=== PATIENT | female | born 1980 | race Caucasian/White ===

== ENCOUNTER 2019-08-13 07:05 | Emergency (ER) | payer BC ==
--- NOTE | 2019-08-13 07:52 | RAD ---
Radiograph right shoulder 3 views: HISTORY: 39-year-old female with decreased range of motion and pain after traumatic injury. FINDINGS: No fracture, subluxation, or dislocation. IMPRESSION: Negative
== END 2019-08-13 07:44 | disposition home or self-care (01) ==
LOC: SCSER 07:05
DX: S43.014A Anterior dislocation of right humerus, initial encounter (principal); Z79.899 Other long term (current) drug therapy; X50.9XXA Other and unspecified overexertion or strenuous movements or postures, initial encounter
CPT/HCPCS: 23650

== ENCOUNTER 2019-09-30 08:13 | Outpatient (CLI) | payer BC ==
[~2019-09-30 08:13] MED LIST: EPINEPHrine 1 MG/ML AMP ONE; Gadobenate Dimeglumine 529 MG/1 ML (20ML VIAL) ONE; Iopamidol 300 61% 50 ML VIAL FS ONE; Lidocaine 1% PF 10 ML AMP ONE
--- NOTE | 2019-09-30 10:43 | RAD ---
PROCEDURE: Fluoroscopic right shoulder arthrogram INDICATION: Right shoulder pain COMPARISON: None TECHNIQUE: Informed consent was obtained. Preprocedure manager internet images were obtained of the right should er. The patient was placed supine on the fluoroscopic table. A timeout was performed. Site overlying the right shoulder was prepped and draped in the usual sterile fashion. Buffered 1% lidocai ne was administered into the overlying subcutaneous tissues. Under fluoroscopic guidance, a 22-gauge spinal needle was guided down into the right glenohumeral joint. Confirmation of needle loca lization was confirmed by injecting 1 cc of the buffered 1% lidocaine. Following this 7 cc of the dilute Multihance solution MR Mix: 23.5 mL solution containing 10 mL of 0.008 dilution of Multihance, 8 mL Isovue 300, 5 mL 1% Lidocaine, 0.5 mL of 1mg/mL Epinephrine was injected. Contrast was visualized within the right glenohumeral joint with fluoroscopy. The needle was removed. The injectio n site was then cleansed and bandage. The patient tolerated the injection without difficulty. Fluoroscopic time: 0.3minutes Fluoroscopic dose: 6.7mcg/sq m FINDINGS: No acute osseous abnormality. IMPRESSION: Successful right shoulder arthrogram. The patient is to have a follow-up MRarthrogram of the shoulder. Please see this report for further details.
--- NOTE | 2019-09-30 12:06 | MRI ---
MR ARTHROGRAM OF THE RIGHT SHOULDER: INDICATION: History of shoulder dislocation and recurrent shoulder instability and pain. TECHNIQUE: Multiplanar multisequence MR images were obtained of the right shoulder following intra-articular adm inistration of a dilute gadolinium solution. Please see the separately dictated right shoulder arthrogram for details concerning the injection technique. Motion artifact limits image detail of exa mination. The patient refused the Aber view series. COMPARISON: Right shoulder radiograph dated August 13, 2019. FINDINGS: There is a Hill-Sachs deformity involving the posterior superior margin of the humeral head. There is a full-thickness tear involving the anterior inferior glenoid labrum consistent with a Bankart lesion. The tear extends from approximately the 5:00 position through the 3:00 position. There is a h igh-grade partial thickness articular surface tear involving the posterior supraspinatus approximately 8 mm from the footprint. The tear is near full-thickness and involves 90% of the tendon thickness. No additional focal tear is evident. No muscular atrophy is noted. The biceps tendon is located. No os acromiale is evident. AC joint is normal-appearing. IMPRESSION: 1. Hill-Sachs deformity and Bankart lesion. 2. High-grade partial thickness articular surface tear of the posterior supraspinatus involving appro ximately 90% of the tendon thickness. Transcribed Date/Time: 09/30/2019 12:19 PM
[2019-09-30] MEDS ORDERED: Magnevist 469MG/ML 20 ML VIAL ONE (15:22)
== END 2019-09-30 08:14 | disposition home or self-care (01) ==
LOC: RAD 08:13
PROVIDERS: ATTEND Orthopaedic Surgery
DX: S43.004A Unspecified dislocation of right shoulder joint, initial encounter (principal)
CPT/HCPCS: 23350; A9577; A9579; J0171; J2001; Q9967

== ENCOUNTER 2019-11-19 08:59 | Outpatient (CLI) | payer BC ==
[2019-11-19 09:12] LABS: #Basophils 0.1 thou/uL (0.0-0.2); #Eosinphils 0.1 thou/uL (0.0-0.7); #Lymphocytes 2.6 thou/uL (1.20-3.40); #Monocytes 0.5 thou/uL (0.11-0.59); %Basophils 0.8 % (0.0-1.0); %Eosinophils 0.8 % (0.0-10.0); %Neutrophils 68.3 % (42.0-75.0); Hemoglobin 14.4 g/dL (12.0-16.0); Mean Corpuscular HGB CONC 34.6 g/dL (32.0-36.0); Mean Corpuscular Hemoglobin 34.4 pg (27.0-31.0); Mean Corpuscular Volume 99.4 fL (78.0-98.0); Mean Platelet Volume 7.3 fL (7.4-10.4); Platelet Count 251 thou/uL (130-400); RBC Distribution Width 11.1 % (11.5-14.5); Red Blood Cell (RBC) Count 4.18 mill/uL (4.20-5.40); White Blood Cell (WBC) Count 10.2 thou/uL (4.8-10.8)
[2019-11-19 09:15] LABS: BHCG - Serum Negative (NEGATIVE); Pregs Control Background? CLEAR/WHITE (CLR/WHITE); Pregs Control Bar Appear? YES (CONTROL BAR)
[2019-11-19 09:22] LABS: Bacteria/HPF 1+ HPF (None Seen); Bilirubin Negative (Negative); Blood, Urine Negative (Negative); Clarity Clear (Clear); Glucose, Urine (Dipstick) Normal (Negative); Leukocyte Negative Leu/uL (Negative); Nitrite Negative (Negative); Protein, Urine (Dipstick) 30 mg/dL (Neg-Trace); RBC/HPF 0-3 HPF (0-3); Squamous Epithelial 0-3 HPF (0-3); Urobilinogen Normal mg/dL (Less than 2); WBC/HPF 0-3 HPF (0-3)
== END 2019-11-19 09:00 | disposition home or self-care (01) ==
LOC: LABBT 08:59
PROVIDERS: ATTEND Orthopaedic Surgery
DX: Z01.812 Encounter for preprocedural laboratory examination (principal); M75.101 Unspecified rotator cuff tear or rupture of right shoulder, not specified as traumatic
CPT/HCPCS: 81001; 84703; 85025

== ENCOUNTER 2019-11-21 09:36 | Day surgery (SDC) | payer BC ==
[2019-11-19 08:40] VITALS: BMI 25.1
[2019-11-21] MEDS ORDERED: PROPOFOL 200 MG/20 ML VIAL ONE (09:42)
[2019-11-21] MEDS ORDERED: Glycopyrrolate 0.2 MG/ML 5 ML SYRINGE ONE (09:42)
[2019-11-21] MEDS ORDERED: Ropivacaine 0.5% HCl/PF (150 MG/30 ML VIAL) ONE (09:42)
[2019-11-21] MEDS ORDERED: Rocuronium Bromide 10 MG/ML (10ML VIAL) ONE (09:42)
[2019-11-21] MEDS ORDERED: Ondansetron PF 4 MG/2 ML Vial ONE (09:42)
[2019-11-21] MEDS ORDERED: Ropivacaine 0.2% HCl/PF (40 MG/20 ML VIAL) ONE (09:42)
[2019-11-21] MEDS ORDERED: ePHEDrine/0.9% NaCl/PF SYRINGE 50 mg/10 ml ONE (09:42)
[2019-11-21] MEDS ORDERED: Lidocaine 1% PF 5 ML VIAL ONE (09:42)
[2019-11-21] MEDS ORDERED: Midazolam HCl 2 mg/2 ml Vial ONE ×2 (10:31→11:15)
[2019-11-21] MEDS ORDERED: Fentanyl 100 MCG/2 ML VIAL ONE (10:31)
[2019-11-21] MEDS ORDERED: Scopolamine 1.5 mg/72 hour Patch ONE (10:43)
[2019-11-21] MEDS ORDERED: traMADol HCl 50 MG TAB PO PRN ×2 (11:07)
[2019-11-21] MEDS ORDERED: Zolpidem Tartrate 5 MG TAB PO PRN (11:07)
[2019-11-21] MEDS ORDERED: Promethazine HCl 25 MG/ML VIAL IM PRN (11:07)
[2019-11-21] MEDS ORDERED: Ropivacaine 0.2% 550 ML 550 ML NERVE BLCK SCH (11:07)
[2019-11-21] MEDS ORDERED: Ondansetron PF 4 MG/2 ML Vial IVP PRN (11:07)
[2019-11-21] MEDS ORDERED: Acetaminophen 325 MG TAB PO PRN (11:07)
[2019-11-21] MEDS ORDERED: HYDROcodone/Acetaminophen 10/325 mg Tablet PO PRN ×2 (11:07)
[2019-11-21] MEDS ORDERED: Fentanyl 100 MCG/2 ML VIAL IV PRN (11:08)
[2019-11-21] MEDS ORDERED: Lidocaine 1% w/Epinephrine 1:100K 20 ML VIAL ONE (11:42)
[2019-11-21] MEDS ORDERED: Meperidine HCl/PF 25 MG/ML VIAL ONE (13:22)
[2019-11-21] MEDS ORDERED: HYDROcodone/Acetaminophen 5/325 mg Tablet ONE (14:14)
--- NOTE | 2019-11-21 15:40 | OP ---
DATE OF PROCEDURE: 11/21/2019 PREOPERATIVE DIAGNOSES: 1. Right shoulder dislocation. 2. Right Bankart. 3. Right high-grade partial-thickness rotator cuff tear. POSTOPERATIVE DIAGNOSES: 1. Right shoulder dislocation. 2. Right Bankart. 3. Right high-grade partial-thickness rotator cuff tear. 4. Synovitis PROCEDURES PERFORMED: 1. Right rotator cuff repair. 2. Debridement of Bankart. QUALITY ASSURANCE SUPERVISOR BODY: None. ANESTHESIOLOGIST: Kim Maynard MD ANESTHESIA: The patient received a general endotracheal intubation with interscalene block. ESTIMATED BLOOD LOSS: None. IMPLANTS: 4.75 SwiveLock. ANTIBIOTICS: Ancef 2 g. COMPLICATIONS: None. HISTORY OF PRESENT ILLNESS: Ms. Cisse is a 39-year-old female, history of being a gymnast. The patient had a dislocation, which she reduced. The patient had a 90% tear of the rotator cuff with an anterior labral and continued to complaint about pain. She failed conservative management with therapy. She would like to be evaluated arthroscopically for rotator cuff repair. I discussed that given the Bankart and rotator cuff repair, I was concerned combination of both might lead her to be extremely stiff and she may dislike her limited range of motion, but the patient understood this and elected for the rotator cuff repair. She understood the risks and benefits of the procedure to include, pain, scar, bleeding, infection, damage to vital structures, decreased range of motion and strength, need for further surgery, pain despite surgery intervention, and loss of life or limb. The patient understood the risks and benefits and elected to proceed. DESCRIPTION OF PROCEDURE: Time-out was performed designating the patient's right upper extremity as the operative site based on site, consents, and marking. After time-out, posterior working portal was placed and anterior portal was placed. She actually was tight on exam under anesthesia showing about 60 degrees external rotation on the right, which I was able to manipulate to 80. Some bleeding within the joint. I came down and found the patient's labrum, which was peeled off, it was not completely peeled off and had some scarring. I shaved just along the edge and made some small cautery edges to help with adherence of the labrum along the anterior aspect of the glenoid. I looked at the biceps, it looked good. There was synovitis in rotator interval. Subscapularis looked good. The intra-articular rotator cuff tear was difficult to appreciate because of space in the shoulder. There was some undersurface tearing, but could not find a 90% tear. I looked all the cartilage lesions, washed out the joint. I then moved subacromially. There was bursa of the shoulder, which I debrided off. I came down and found the patient's tear, which is a soft spot, which I fell into with a very small tear making very challenging actually to repair. We put a 4.75 SwiveLock into the footprint. We sewed sutures using both a SutureLasso for anterior stitch as well as a FastPass to get the sutures anterior and posterior and closed it up, tied the horizontal mattress sutures and cut the knots. Took pictures, I washed and cleaned. The patient will be in a sling with elbow, wrist, and hand motion. I will see her back in 2 weeks. [place] is guarded. She fails this and continues to have pain despite surgical intervention, we might proceed forward with actually a Bankart repair and possible biceps tenodesis She is able to regain her range of motion and still complains of instability. I do not think this will be the case. The patient will be followed in-house and is to be followed up upon discharge. Job ID: [id number] [facility]
== END 2019-11-21 16:05 | disposition home or self-care (01) ==
LOC: SDC 09:36
PROVIDERS: ATTEND Orthopaedic Surgery
PROC: 0LQ14ZZ Repair Right Shoulder Tendon, Percutaneous Endoscopic Approach (ICD-10-PCS; principal; 2019-11-21)
PROC: 3E0T3BZ Introduction of Anesthetic Agent into Peripheral Nerves and Plexi, Percutaneous Approach (ICD-10-PCS; principal; 2019-11-21)
DX: M75.111 Incomplete rotator cuff tear or rupture of right shoulder, not specified as traumatic (principal); S43.431A Superior glenoid labrum lesion of right shoulder, initial encounter; S43.004A Unspecified dislocation of right shoulder joint, initial encounter; M65.9 Synovitis and tenosynovitis, unspecified; G89.18 Other acute postprocedural pain; Z88.1 Allergy status to other antibiotic agents
CPT/HCPCS: A4306; C1713; J0690; J2001; J2175; J2250; J2405; J2704; J2795; J3010